=== PATIENT | male | born 1985 | race Caucasian/White ===

== ENCOUNTER 2017-09-05 15:38 | Day surgery (SDC) | payer OTHER ==
[~2017-09-05 15:38] MED LIST: BUPIVACAINE 0.5% PF 30 ML VIAL SUBQ ONE
[2017-09-05 16:08] LABS: BILIRUBIN,URINE NEGATIVE (NEGATIVE); GLUCOSE, URINE (UA) NEGATIVE (NEGATIVE); KETONES,URINE (UA) TRACE mg/dL (NEGATIVE); LEUKOCYTE ESTERASE, URINE NEGATIVE (NEGATIVE); NITRITE,URINE NEGATIVE (NEGATIVE); OCCULT BLOOD,URINE NEGATIVE (NEGATIVE); PH,URINE 6.5 PH (5.0-7.5); PROTEIN,URINE NEGATIVE (NEGATIVE); UROBILINOGEN,URINE 0.2 (NORMAL) E.U./dL (NORMAL)
[2017-09-05 16:13] LABS: CLARITY,URINE CLEAR (CLEAR)
[2017-09-05 16:22] LABS: BASOPHILS # (AUTO) 0.1 10^3/uL (0.0-0.1); BASOPHILS % (AUTO) 0.6 %; EOSINOPHILS % (AUTO) 0.3 %; HGB - HEMOGLOBIN 15.7 g/dL (14.0-18.0); LYMPHOCYTES # (AUTO) 1.3 10^3/uL (1.5-3.5); LYMPHOCYTES % (AUTO) 8.7 %; MEAN CORPUSCULAR HEMOGLOBIN 30.9 pg (27.0-31.0); MEAN CORPUSCULAR HGB CONC 34.6 g/dL (32.0-36.0); MEAN CORPUSCULAR VOLUME 89.2 fL (80.0-94.0); MEAN PLATELET VOLUME 7.7 fL (7.4-11.4); MONOCYTES # (AUTO) 1.2 10^3/uL (0.0-1.0); NEUTROPHILS # (AUTO) 12.7 10^3/uL (1.5-6.6); NEUTROPHILS % (AUTO) 82.4 %; PLT - PLATELET COUNT 245 10^3/uL (130-450); RED BLOOD COUNT 5.09 10^6/uL (4.70-6.10); RED CELL DISTRIBUTION WIDTH 12.2 % (12.0-15.0); WHITE BLOOD COUNT 15.4 x10^3/uL (4.8-10.8)
[2017-09-05 16:32] LABS: ALBUMIN 4.9 g/dL (3.2-5.5); ALBUMIN/GLOBULIN RATIO 1.3 (1.0-2.2); BILIRUBIN,TOTAL 1.1 mg/dL (0.2-1.0); CALCIUM 9.7 mg/dL (8.5-10.3); CREATININE 0.7 mg/dL (0.6-1.2); TOTAL PROTEIN 8.8 g/dL (6.7-8.2)
--- NOTE | 2017-09-05 17:30 | ED Physician Documentation ---
History of Present Illness - Stated complaint Stated Complaint: ABD PX - Chief complaint Chief Complaint: Abd Pain - History obtained from History obtained from: Patient - History of Present Illness Timing: Last night Pain level max: 7 Pain level now: 7 Improved by: lying still Worsened by: palpation - Additonal information Additional information: generalized abd pain last night and today, now moving to [facility]. Decrease appetite today. No fevers. +Nausea without vomiting. Soft stools, but no diarrhea. Review of Systems Ten Systems: 10 systems reviewed and negative Constitutional: denies: Fever, Chills Ears: denies: Ear pain Nose: denies: Rhinorrhea / runny nose, Congestion Throat: denies: Sore throat Cardiac: denies: Chest pain / pressure Respiratory: denies: Cough GI: denies: Diarrhea, Hematemesis, Bloody / black stool : denies: Dysuria Skin: denies: Rash Musculoskeletal: denies: Neck pain, Back pain Neurologic: denies: Headache PD PAST MEDICAL HISTORY - Past Medical History Past Medical History: No - Past Surgical History Past Surgical History: Yes - Present Medications Home Medications: Ambulatory Orders Medication Instructions Recorded Confirmed No Known Home Medications [No 09/05/17 09/05/17 Known Home Medications] - Allergies Allergies/Adverse Reactions: Allergies Allergy/AdvReac Type Severity Reaction Status Date / Time No Known Drug Allergies Allergy Verified 09/05/17 15:54 - Social History Does the pt smoke?: No Smoking Status: Never smoker Does the pt drink ETOH?: Yes Does the pt have substance abuse?: No - Immunizations Immunizations are current?: Yes PD ED PE NORMAL - Vitals Vital signs reviewed: Yes - General General: Alert and oriented X 3 - HEENT HEENT: Moist mucous membranes - Neck Neck: Supple, no meningeal sign - Cardiac Cardiac: RRR - Respiratory Respiratory: No respiratory distress, Clear bilaterally - Abdomen Abdomen: Soft, Other (+TTP at mcburney's point. + rebound and guarding. ) - Back Back: No CVA TTP, No spinal TTP - Derm Derm: Warm and dry - Extremities Extremities: No edema - Neuro Neuro: Alert and oriented X 3 - Psych Psych: Normal mood Results - Vitals Vitals: Vital Signs - 24 hr 09/05/17 09/05/17 09/05/17 15:51 18:10 20:58 Temperature 37 C Heart Rate 92 103 H Respiratory 16 18 Rate Blood Pressure 139/100 H 154/94 H Blood Pressure [Left Brachial artery] O2 Saturation 99 96 99 09/05/17 09/05/17 09/05/17 21:05 21:18 21:29 Temperature 37.4 C 37.0 C Heart Rate 94 88 Respiratory 21 14 Rate Blood Pressure Blood Pressure 134/62 H 148/77 H [Left Brachial artery] O2 Saturation 95 97 Oxygen O2 Source Room air - Labs Labs: Laboratory Tests 09/05/17 09/05/17 09/05/17 16:00 16:15 16:15 WBC 15.4 H RBC 5.09 Hgb 15.7 Hct 45.4 MCV 89.2 MCH 30.9 MCHC 34.6 RDW 12.2 Plt Count 245 MPV 7.7 Neut # (Auto) 12.7 H Lymph # (Auto) 1.3 L [place] # (Auto) 1.2 H Eos # (Auto) 0.0 Baso # (Auto) 0.1 Absolute Nucleated RBC 0.01 Nucleated RBC % 0.0 Sodium 132 L Potassium 3.7 Chloride 98 L Carbon Dioxide 23 Anion Gap 11.0 BUN 11 Creatinine 0.7 Estimated GFR (MDRD) 132 Glucose 124 H Calcium 9.7 Total Bilirubin 1.1 H AST 75 H ALT 110 H Alkaline Phosphatase 63 Total Protein 8.8 H Albumin 4.9 Globulin 3.9 Albumin/Globulin Ratio 1.3 Lipase 29 Urine Color YELLOW Urine Clarity CLEAR Urine pH 6.5 Ur Specific [place] 1.010 Urine Protein NEGATIVE Urine Glucose (UA) NEGATIVE Urine Ketones TRACE Urine Occult Blood NEGATIVE Urine Nitrite NEGATIVE Urine Bilirubin NEGATIVE Urine Urobilinogen 0.2 (NORMAL) Ur Leukocyte Esterase NEGATIVE Ur Microscopic Review NOT INDICATED Urine Culture Comments NOT INDICATED - Rads (name of study) CT abd/pelvis Radiology: Prelim report reviewed, EMP read contemporaneously, See rad report ( Acute appendicitis. No free air or abscess. ) PD MEDICAL DECISION MAKING - ED course Complexity details: reviewed results, re-evaluated patient, considered differential, d/w patient, d/w independent marketing consultant ED course: Patient is a 31-year-old male who presents to the emergency department with abdominal pain today. After my initial evaluation, I had Dr. Vogel see the patient in the emergency department and he requests a CT scan be performed. CT scan was performed and confirms the diagnosis of appendicitis. Dr. Vogel then came back to the emergency department and the patient will be taken to the operating room. Patient was given pain medication, Zofran and antibiotics. Patient taken to the OR. This document was made in part using voice recognition software. While efforts are made to proofread this document, sound alike and grammatical errors may occur. - Sepsis Event Vital Signs: Vital Signs - 24 hr 09/05/17 09/05/17 09/05/17 15:51 18:10 20:58 Temperature 37 C Heart Rate 92 103 H Respiratory 16 18 Rate Blood Pressure 139/100 H 154/94 H Blood Pressure [Left Brachial artery] O2 Saturation 99 96 99 09/05/17 09/05/17 09/05/17 21:05 21:18 21:29 Temperature 37.4 C 37.0 C Heart Rate 94 88 Respiratory 21 14 Rate Blood Pressure Blood Pressure 134/62 H 148/77 H [Left Brachial artery] O2 Saturation 95 97 Oxygen O2 Source Room air Departure - Departure Disposition: ED Transfer to [facility] Clinical Impression: Appendicitis Qualifiers: Appendicitis type: acute appendicitis Acute appendicitis type: with localized peritonitis Qualified Code(s): K35.3 - Acute appendicitis with localized peritonitis Condition: Stable Discharge Date/Time: 09/05/17 20:00
[2017-09-05] MEDS ORDERED: IOPAMIDOL-300 100 ML VIAL ONE (17:46)
[2017-09-05] MEDS ORDERED: IOPAMIDOL-300 100 ML VIAL IVP ONE (18:05)
[2017-09-05] MEDS ORDERED: PIPERACILLIN/TAZOBACTAM 3.375 GM in SODIUM CHLORIDE 0.9% MINIBAG 100 ML IV STA (18:05)
[2017-09-05] MEDS ORDERED: ONDANSETRON 4 MG/2 ML VIAL IVP STA (18:06)
[2017-09-05] MEDS ORDERED: MORPHINE 10 MG/ML VIAL IVP STA (18:06)
--- NOTE | 2017-09-05 18:29 | CT Report ---
EXAM: CT ABDOMEN AND PELVIS EXAM DATE: 09/05/2017 06:06 PM. CLINICAL HISTORY: RLQ abd pain. COMPARISONS: None. TECHNIQUE: Routine helical CT imaging was performed through the abdomen and pelvis. IV contrast: 100 cc Isovue-300. Enteric contrast: No. Reconstructions: Coronal and sagittal. In accordance with CT protocol optimization, one or more of the following dose reduction techniques w ere utilized for this exam: automated exposure control, adjustment of mA and/or KV based on patient s ize, or use of iterative reconstructive technique. FINDINGS: ABDOMEN: Lung Bases: Incompletely included lower lungs are grossly clear. Heart size is within normal limits. No basilar effusions. Liver: Unremarkable. Spleen: Unremarkable. Pancreas: Unremarkable. Gallbladder/Bile Ducts: Gallbladder is unremarkable. Biliary tree is normal caliber. Adrenal Glands: Unremarkable. Kidneys: No mass, calculi, or hydronephrosis. Peritoneum/Mesentery/Bowel: No free fluid, free air, or collection. No intestinal obstruction or inflammation. Appendix is markedly thickened and inflamed measuring up to 1.6 cm. Moderate surrounding inflammatory change. Lymph nodes: Reactive mesenteric lymphadenopathy in the right lower quadrant. Retroperitoneum: Abdominal aorta is nonaneurysmal. Portal vein is patent. Hepatic veins are patent. PELVIS: The bladder is unremarkable for the degree of distention. Prostate is present. No pelvic lymp hadenopathy. Bones: No suspicious osseous lesions. IMPRESSION: Acute appendicitis. No free air or abscess. [facility] Referring Provider Line: [phone] SITE ID: [id number]
--- NOTE | 2017-09-05 18:57 | CONSULTATION NOTE ---
Referring Provider Name of Referring Provider:: Dr. Scottie Ambrocio Consult Date: 09/05/17 Chief Complaint - Chief Complaint Chief Complaint: Abdominal pain localizing to the RLQ with nausea History of Present Illness - Admitted From Admitted From:: NOT admitted - OUTPATIENT - History Obtained From Records Reviewed: Yes History obtained from: Patient and chart Exam Limitations: None - History of Present Illness HPI Comment/Other: Dr. 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 It was associated with nausea but no vomiting. The patient states his stools have been a little softer than normal but not abnormal. He has not had this pain previously. The pain has worsened. Aggravating the pain is moving whereas lying still alleviates the pain. History - Past Medical History Cardiovascular: reports: None Respiratory: reports: None Neuro: reports: None Endocrine/Autoimmune: reports: None GI: reports: None : reports: None HEENT: reports: None Psych: reports: None Musculoskeletal: reports: None Derm: reports: None MRSA Hx?: No Meds/Allgy - Home Medications Home Medications: Ambulatory Orders Medication Instructions Recorded Confirmed No Known Home Medications [No 09/05/17 09/05/17 Known Home Medications] - Allergies Allergies/Adverse Reactions: Allergies Allergy/AdvReac Type Severity Reaction Status Date / Time No Known Drug Allergies Allergy Verified 09/05/17 15:54 Review of Systems - Constitutional Constitutional: denies: Fatigue, Fever, Chills - Eyes Eyes: denies: Pain - Ears, Nose & Throat Ears, Nose & Throat: denies: Ear pain - Cardiovascular Cariovascular: denies: Chest pain - Respiratory Respiratory: denies: Cough - Gastrointestinal Gastrointestinal: reports: Abdominal pain - Genitourinary Genitourinary: denies: Dysuria - Musculoskeletal Musculoskeletal: denies: Muscle pain, Back pain Exam - Vital Signs Reviewed Vital Signs: Yes Vital Signs: Vital Signs x48h Temp Pulse Resp BP Pulse Ox 09/05/17 18:10 103 H 18 154/94 H 96 09/05/17 15:51 37 C 92 16 139/100 H 99 - Physical Exam General Appearance: positive: No acute distress (Evaluated in bed 2 at [facility]'s emergency department.) Eyes Bilateral: positive: No lid inflammation, Conjunctivae nml, No scleral icterus ENT: positive: Dry mucous membranes Neck: positive: Trachea midline Respiratory: positive: Chest non-tender, No respiratory distress, Breath sounds nml Cardiovascular: positive: Regular rate & rhythm, No murmur Abdomen: positive: Tenderness (The tenderness is more suprapubic than at McBurney's point and it requires quite a bit of pushing in order to generate the pain. There are normal active bowel sounds and no palpable hepatosplenomegaly.) Skin: positive: Color nml Extremities: positive: Nml appearance Neurologic/Psychiatric: positive: Oriented x3 Conclusion/Plan - Diagnosis Diagnosis: Acute appendicitis confirmed by history, laboratory, radiology, and exam - Plan Plan: Laparoscopic appendectomy, possible open appendectomy. The indications, procedure, alternatives including no surgery, possible risks including infection (deep or superficial), bleeding requiring transfusion (with all of its risks), and were fully explained to the patient and all questions answered. I also explained the pathophysiology. I explained that following the surgery I did not want him lifting anything over 15 pounds for 6 weeks to allow for optimal healing and to decrease the likelihood that a hernia would occur. All questions were fully answered. Verbal and written consent was obtained. The patient, in preparation for surgery will be nothing by mouth, and receive 3.375 g of Zosyn with induction. I asked him to contact me with any surgical questions and his concerns and he stated that he would. I asked him to let me know if there is any way we can make his stay at [facility] more comfortable and he stated that he would let me know. The plan is to do this operation as an outpatient procedure and to discharge him home following the procedure. 45 minutes of [id number] time spent with the patient, over 80% in discussion, coordination of his care, and filling out the required paperwork and computer entry - Lab Results Lab results reviewed: Yes Fish Bones: 09/05/17 16:15 09/05/17 16:15 - Diagnostic Imaging Results Diagnostic Imaging Results: positive: Final report reviewed, Read independently Diagnostic Imaging Results Comments: Consistent with acute nonruptured appendicitis.
[2017-09-05] MEDS ORDERED: BUPIVACAINE 0.5% PF 30 ML VIAL ONE (19:03)
[2017-09-05] MEDS ORDERED: LACTATED RINGERS 1,000 ML IV ONE ×2 (19:27→20:46)
[2017-09-05] MEDS ORDERED: MIDAZOLAM 2 MG/2 ML VIAL IVP ONE (20:20)
[2017-09-05] MEDS ORDERED: SUCCINYLCHOLINE 200 MG/10 ML VIAL IVP ONE (20:20)
[2017-09-05] MEDS ORDERED: KETOROLAC 30 MG/ML VIAL IVP ONE (20:20)
[2017-09-05] MEDS ORDERED: PROPOFOL 200 MG/20 ML VIAL IVP ONE (20:20)
[2017-09-05] MEDS ORDERED: DEXAMETHASONE 4 MG/ML VIAL IVP ONE (20:20)
[2017-09-05] MEDS ORDERED: fentaNYL 250 MCG/5 ML VIAL IVP ONE (20:20)
[2017-09-05] MEDS ORDERED: ROCURONIUM 50 MG/5 ML VIAL IVP ONE (20:20)
[2017-09-05] MEDS ORDERED: ACETAMINOPHEN 1,000 MG/100 ML 100 ML IV ONE (20:20)
[2017-09-05] MEDS ORDERED: oxyCODONE/ACET 5/325 Prepack 4 PO STA (20:59)
[2017-09-05] MEDS ORDERED: SUCCINYLCHOLINE 200 MG/10 ML VIAL ONE (21:13)
--- NOTE | 2017-09-05 21:13 | OPERATIVE REPORT ---
Operative Report - General Procedure Date: 09/05/17 Planned Procedure: Laparoscopic appendectomy, possible open appendectomy Pre-Op Diagnosis: Acute appendicitis Procedure Performed: Laparoscopic appendectomy, umbilical herniorrhaphy Post Op Diagnosis: Acute appendicitis, umbilical hernia - Procedure Note Primary Surgeon: Carlos Vogel MD Anesthesia Provider: Bhavana Benavides CRNA Anesthesia Technique: General ET tube, Local (30 mL of half percent Marcaine) IV Fluids (mL): 1,100 Estimated Blood Loss (mL): 5 Complications: None - Other Other Information/Narrative: OPERATIVE DESCRIPTION/REPORT: After verbal and written informed consent was obtained detailing the risks of infection, bleeding requiring transfusion with its risks, and , and after I met with the patient confirming the surgery and the site of the surgery, the patient was brought to the operative suite and placed supine on the operating table. Great care was taken to avoid pressure points to prevent pressure necrosis or nerve injury. Monitoring devices were applied along with TEDs and pneumatic compressive stockings (to prevent DVT). The patient received preoperative antibiotics for surgical prophylaxis. Bhavana Benavides CRNA sedated and anesthetized the patient for the entire procedure. The patient was prepped and draped in the usual sterile manner. With the patient draped my initials were clearly visible. A "time in" then confirmed that the patient was identified with 3 identifiers (name, date and medical record number), the history and physical was in the chart, the signed consent confirming the procedure was in the chart, the patient was in the correct position, the aforementioned prophylactic measures were in place or given, we had the correct personnel and equipment to complete the procedure and that anesthesia, surgery and nursing were given an opportunity to express any concerns. With the agreement of everyone in the room, we proceeded with the operation. A 2 cm umbilical midline incision was made. The fascia was then cleared of subcutaneous tissue using a tonsil clamp. A small umbilical hernia was noted and this was widened to gain entry into the abdominal cavity without incident. A 12 mm blunt tipped balloon tipped Tami port was placed into the abdomen and the balloon inflated to keep it in place. The pneumoperitoneum was then established using carbon dioxide insufflation to a steady state pressure of 12 mmHg. Two additional 5 mm ports were placed in the midline above and below the umbilicus. The patient was then rotated slightly to their left and slightly head down ( Trendelenberg). The appendix was clearly identified and noted to be thickened, retrocecal, and clearly consistent with acute appendicitis. The appendix and the mesoappendix were markedly thickened and adherent to the right abdominal wall as well as to the small bowel. Significant dissection was required to free it from these areas. This was primarily done using traction and countertraction but the LigaSure was also employed. The base of the appendix and mesentery were then stapled and transected using a laparoscopic vascular stapler. Upon stapling the base the appendix there was a release of a not insignificant amount of pus. A photograph was taken of this. Another vascular stapler larger and longer was obtained and the staple line was excised using an application of the stapler ([employer]). This time there was no pus or bleeding. In fact the staple line looked to be intact. Visualization of the staple line revealed absolutely no bleeding or leak of bowel contents. The appendix and the staple line were then placed into an endopouch for the remainder of the case. The patient was then rotated to lie flat. The fascia and skin were then injected with the 30 cc of % marcaine for pain control. The insufflation was released and the ports removed. With the removal of the umbilical port the Endopouch containing the appendix was also removed. The fascial defect was then approximated using 0-Vicryl suture in a simple interrupted manner taking care to bury the knots thus repairing the umbilical hernia. The skin incisions were approximated with 4-0 Monocryl in a subcuticular fashion. The surgical prep was removed, the skin was prepped with benzoin and steristrips were applied. A dressing was applied. At this point a time out was performed that confirmed that all the counts were correct, the procedure that was performed, the blood loss, the urine output, the IV fluids administered, and the patients condition. Having tolerated the procedure well , the patient was subsequently extubated and taken to recovery room in good and stable condition.
[2017-09-05 21:31] VITALS: BP 148/77
[2017-09-05] MEDS ORDERED: oxyCOD/ACETAMIN 5 MG/325 MG TABLET PO ONE (21:42)
== END 2017-09-05 18:16 | disposition home or self-care (01) ==
LOC: ED 15:38 → SDS 18:15
PROVIDERS: ATTEND Surgery
PROC: 0DTJ4ZZ Resection of Appendix, Percutaneous Endoscopic Approach (ICD-10-PCS; principal; 2017-09-05 18:30)
DX: K35.80 Unspecified acute appendicitis (principal); K42.9 Umbilical hernia without obstruction or gangrene
CPT/HCPCS: 36415; 44970; 74177; 80053; 81003; 83690; 85025; 96365; 96375; 99283; 99285; A9270; J0131; J0330; J3010; J7120; Q9967; 81001; 87086; 88304

== ENCOUNTER 2017-09-06 16:05 | Outpatient (CLI) | payer OTHER ==
[2017-09-06 16:16] LABS: BASOPHILS % (AUTO) 0.2 %; HGB - HEMOGLOBIN 14.9 g/dL (14.0-18.0); LYMPHOCYTES # (AUTO) 0.8 10^3/uL (1.5-3.5); LYMPHOCYTES % (AUTO) 8.2 %; MEAN CORPUSCULAR HEMOGLOBIN 31.4 pg (27.0-31.0); MEAN CORPUSCULAR HGB CONC 34.7 g/dL (32.0-36.0); MEAN CORPUSCULAR VOLUME 90.5 fL (80.0-94.0); MEAN PLATELET VOLUME 7.3 fL (7.4-11.4); MONOCYTES # (AUTO) 0.6 10^3/uL (0.0-1.0); MONOCYTES % (AUTO) 6.7 %; NEUTROPHILS # (AUTO) 8.2 10^3/uL (1.5-6.6); NEUTROPHILS % (AUTO) 84.9 %; PLT - PLATELET COUNT 205 10^3/uL (130-450); RED BLOOD COUNT 4.74 10^6/uL (4.70-6.10); RED CELL DISTRIBUTION WIDTH 12.3 % (12.0-15.0); WHITE BLOOD COUNT 9.6 x10^3/uL (4.8-10.8)
--- NOTE | 2017-09-06 16:55 | XRAY Report ---
EXAM: CHEST RADIOGRAPHY EXAM DATE: 09/06/2017 04:39 PM. CLINICAL HISTORY: Post appendectomy fever. COMPARISON: None. TECHNIQUE: 2 views. FINDINGS: Lungs/Pleura: Mild left base atelectasis, otherwise no focal opacities evident. No pleural effusion. No pneumothorax. Normal volumes. Mediastinum: Heart and mediastinal contours are unremarkable. Other: Free air under the right hemidiaphragm compatible with recent appendectomy. No compression fra ctures. IMPRESSION: Mild left base atelectasis, otherwise unremarkable 2-view chest radiography. [facility] Referring Provider Line: [phone] SITE ID: [id number]
== END 2017-09-06 16:06 | disposition home or self-care (01) ==
LOC: LAB 16:05
PROVIDERS: ATTEND Surgery
DX: R50.9 Fever, unspecified (principal); R50.82 Postprocedural fever
CPT/HCPCS: 36415; 71046; 85025